=== PATIENT | female | born 1990 | race Caucasian/White ===

== ENCOUNTER → 2016-05-11 | Outpatient (CLI) | payer OTHER ==
[~2016-05-11] MED LIST: ALPR1TAB2 PO; CYCL10TA2 PO; ESCI20TA PO
--- NOTE | 2016-05-11 10:21 | RAD ---
Right breast ultrasound History: Intermittent right breast pain at 9:00. When patient has pain, patient can also feel a lump. Currently, patient is without pain and cannot feel lump. Comparison: None. Findings: Ultrasound imaging was performed of the right breast at 9:00 in area of clinical interest. No solid or cystic masses are identified. Normal breast tissue is seen. Impression: No sonographic abnormality identified. BI-RADS CATEGORY: 1 NEGATIVE RECOMMENDED FOLLOW-UP: CLIN FOLLOW UP IMAGING CLINICALLY INDICATED
== END | disposition home or self-care (01) ==
LOC: US 08:48
PROVIDERS: ATTEND Physician Assistant Medical
DX: N63 Unspecified lump in breast (principal)
CPT/HCPCS: 76641

== ENCOUNTER → 2017-03-12 | Outpatient (CLI) | payer OTHER ==
[~2017-03-12] MED LIST changes: +CYCL-331 PO; -CYCL10TA2 PO; -ESCI20TA PO; +ESCITALOPRAM OX20 MG PO
--- NOTE | 2017-03-12 17:05 | RAD ---
Transabdominal and endovaginal pelvic ultrasound History: Left lower quadrant pain for 2 months. Comparison: None. Technique: Transabdominal imaging was performed to evaluate optimally the uterine fundus. Endovaginal imaging was performed to evaluate optimally the endometrial stripe and lower uterine segment. Findings: Transabdominal imaging: The uterus measures 8.5 cm in length. Uterus has an unremarkable appearance. The endometrial stripe measures approximately 6 mm, within normal limits. Right ovary measures 2.5 x 2.8 x 3.4 cm and demonstrates a few follicles. Left ovary measures 4.9 x 3.7 x 4.6 cm and demonstrates cyst measuring 3.7 cm. No adnexal masses are seen. Physiologic free fluid is seen posterior to the uterus. Endovaginal imaging: The uterus measures 9.1 cm in length. Uterus has an unremarkable appearance. The endometrial stripe measures 8 mm, within normal limits. Right ovary measures 2.2 x 2.9 x 3.1 cm cm and demonstrate small hemorrhagic follicle. Left ovary measures 4.2 x 3.7 x 4.7 cm and demonstrate 4.0 cm cyst. No adnexal masses are seen. Both ovaries demonstrate normal vascular flow upon Doppler interrogation and are without evidence of torsion. Impression: 1. Functional left ovarian cyst. 2. Hemorrhagic right ovarian follicle.
== END | disposition home or self-care (01) ==
LOC: US 15:36
PROVIDERS: ATTEND Physician Assistant Medical
DX: N83.202 Unspecified ovarian cyst, left side (principal); R58 Hemorrhage, not elsewhere classified
CPT/HCPCS: 76830; 76856

== ENCOUNTER → 2017-11-17 | Outpatient (CLI) | payer BC, OTHER ==
--- NOTE | 2017-11-18 08:43 | RAD ---
US PELVIS W/TV History: Pelvic pain for a couple of months Comparison: 03/12/2017 Findings: Multiple transabdominal sonographic images of the pelvis are submitted. Endometrium measured 0.4 cm. Uterus measured 8 x 3.1 x 4.5 cm. Right ovary measured 2.1 x 1.4 x 2.2 cm. Left ovary measured 3.4 x 3.9 x 4.7 cm. There is a focus of hypoechogenicity of the left ovary about 2.5 x 3.1 x 3 cm apparently with internal septation. Transvaginal ultrasound: Multiple transvaginal sonographic images of the pelvis are submitted. Uterus measured 7.4 x 3.4 x 4.6 cm. Endometrium measured 0.4 cm. Left ovary measured 4.6 x 2.7 x 4.5 cm. There are hypoechoic foci of the left ovary. Anechoic lesion of the left ovary measures up to 1.3 cm. There is a larger partially hypoechoic lesion of the left ovary about 3.2 cm x 2.9 x 2.8 cm, internal echogenicity somewhat more eccentric to the periphery. There is normal low resistance vascularity of the left ovary. Right ovary measured 1.8 x 2.9 x 3 cm with normal low resistance vascularity. There are some small follicles of the right ovary. There is minimal free fluid in the pelvis. Impression: 1. There is a simple cyst of the left ovary. There is another larger complex partially cystic lesion of the left ovary up to 3.2 cm for which follow-up such as in 2 months advised. There is minimal free fluid. Electronically signed by: Donnell Vital MD (11/18/2017 8:40 AM) [id number]
== END | disposition home or self-care (01) ==
LOC: US 13:23
PROVIDERS: ATTEND Obstetrics & Gynecology
DX: N83.292 Other ovarian cyst, left side (principal)
CPT/HCPCS: 76830; 76856